=== PATIENT | female | born 1990 | race Caucasian/White ===

== ENCOUNTER 2019-10-07 11:33 | Emergency (ER) | payer MEDICAID, OTHER ==
[~2019-10-07] VITALS: Ht 162.6 cm; Wt 77.1 kg
[~2019-10-07 11:33] MED LIST: FOLI1TAB19 PO; PREN-385 PO
[2019-10-07 11:41] VITALS: BP 131/75
--- NOTE | 2019-10-07 11:59 | NUR ---
29/F C/O SHARP RIGHT SIDED LOW BACK PAIN RADIATING RLE POSTERIORLY S/P FALL IN THE SHOWER YESTERDAY NO DISCOLORATION NOTED--AMBULATORY WITH A SLIGHT LIMP. PAIN WORSE WITH MOVEMENT/AMBULATION. DENIES HEAD INJURY/LOC. DENIES LOSS OF BOWEL/BLADDER CONTROL, NUMBNESS/TINGLING. SKIN INTACT. APPEARS IN NAD AT REST. HX--DENIES RX---NONE
--- NOTE | 2019-10-07 12:02 | NUR ---
DR LOPEZ EVALUATING PT AT BEDSIDE
--- NOTE | 2019-10-07 12:15 | NUR ---
PT CANNOT VOID AT THIS TIME, WANTS TO SIGN FORM STATING NOT FOR XRAY. XRAY DEPT NOTIFIED.
[2019-10-07] MEDS: IBUPROFEN 600 MG TAB PO ONE (12:28)
--- NOTE | 2019-10-07 13:10 | NUR ---
PT AMB TO BATHROOM TO PROVIDE URINE SAMPLE
--- NOTE | 2019-10-07 13:20 | NUR ---
NOTIFIED XRAY DEPT THAT URINE PREG RESULT OBTAINED
--- NOTE | 2019-10-07 13:27 | NUR ---
PT TO XRAY VIA W/C
--- NOTE | 2019-10-07 13:52 | NUR ---
PHARMACY CALLED AGAIN FOR LIDOCAINE PATCH
[2019-10-07] MEDS: LIDOCAINE 5% 1 EA PATCH TP SCH (14:05)
--- NOTE | 2019-10-07 14:05 | NUR ---
LIDOCAINE PATCH APPLIED TO RIGHT LOW BACK, PT INSTRUCTED TO LEAVE PATCH IN PLACE FOR 12 HOURS THEN REMOVE.
[2019-10-07 14:13] VITALS: BP 135/82
== END 2019-10-07 14:00 | disposition home or self-care (01) ==
LOC: MED 11:33
DX: S39.012A Strain of muscle, fascia and tendon of lower back, initial encounter (principal); M54.30 Sciatica, unspecified side; Z79.899 Other long term (current) drug therapy; W19.XXXA Unspecified fall, initial encounter; Y93.E1 Activity, personal bathing and showering; Y92.89 Other specified places as the place of occurrence of the external cause; Y99.8 Other external cause status
CPT/HCPCS: 72100; 72170; 81025; 99283; 99284

== ENCOUNTER 2021-03-15 14:50 | Emergency (ER) | payer MEDICAID ==
[~2021-03-15] VITALS: Ht 162.6 cm; Wt 72.6 kg
[2021-03-15 15:11] VITALS: BP 100/55
[2021-03-15] MEDS ORDERED: [UNRECOGNIZED DRUG - CODE] PO (15:42)
--- NOTE | 2021-03-15 16:30 | NUR ---
NO NURSING INTERVENTIONS PROVIDED
--- NOTE | 2021-03-15 16:31 | NUR ---
NO NURSING INTERVENTIONS PROVIDED
[2021-03-15 16:32] VITALS: BP 100/55
--- NOTE | 2021-03-15 16:32 | NUR ---
Patient discharged with v/s stable. Written and verbal after care instructions ABOOUT COVID 19 given and explained. Patient alert, oriented and verbalized understanding of instructions. Ambulatory with steady gait. All questions addressed prior to discharge. ID band removed. Patient advised to follow up with PMD. Rx of COLD MULTI-SYMPTOM CAPLET given. Patient educated on indication of medication including possible reaction and side effects. Opportunity to ask questions provided and answered.
== END 2021-03-15 16:32 | disposition home or self-care (01) ==
LOC: MED 14:50
DX: U07.1 COVID-19 (principal)
CPT/HCPCS: 99283; U0003